=== PATIENT | female | born 1940 | race Caucasian/White ===

== ENCOUNTER 2021-10-01 05:43 | Inpatient (IN) | payer BC ==
[2021-09-28 16:27] LABS: BASOPHILS % (AUTO) 0.4 % (0-1); EOSINOPHILS # (AUTO) 0.2 X10'3 (0-0.9); EOSINOPHILS % (AUTO) 3.1 % (0-6); LYMPHOCYTES # (AUTO) 1.5 X10'3 (1.1-4.8); LYMPHOCYTES % (AUTO) 19.4 % (21-51); MEAN CORPUSCULAR HEMOGLOBIN 30.4 PG (27.0-31.0); MEAN CORPUSCULAR HGB CONC 33.1 g/dL (33.0-36.5); MEAN CORPUSCULAR VOLUME 91.9 FL (78-98); MEAN PLATELET VOLUME 8.2 FL (7.4-10.4); MONOCYTES # (AUTO) 0.8 X10'3 (0-0.9); MONOCYTES % (AUTO) 10.5 % (2-12); NEUTROPHILS % (AUTO) 66.6 % (42-75); PRE OP HEMOGLOBIN 12.6 g/dL (12.0-16.0); PRE OP PLATELET COUNT 445 X10'3 (140-440); RED BLOOD COUNT 4.14 X10'6 (4.20-5.60); RED CELL DISTRIBUTION WIDTH 13.4 % (11.5-14.5)
[2021-09-28 16:42] LABS: PRE OP PROTIME 10.7 SECONDS (9.0-12.0)
[2021-09-28 16:49] LABS: ALBUMIN 3.9 G/DL (3.4-5.0); ALBUMIN/GLOBULIN RATIO 1.4 (1.1-1.5); ALKALINE PHOSPHATASE 67 IU/L (46-116); BLOOD UREA NITROGEN 39 MG/DL (7-18); BUN/CREATININE RATIO 30.7 (6.6-38.0); CALCIUM 9.7 MG/DL (8.5-10.1); CHLORIDE 103 MMOL/L (99-107); CREATININE 1.27 MG/DL (0.40-0.90); PRE OP ALT 17 U/L (30-65); PRE OP ANION GAP 9 (8-16); PRE OP AST 15 U/L (10-37); PRE OP BILIRUB, TOTAL 0.3 MG/DL (0.0-1.0); PRE OP GLUCOSE 122 MG/DL (70-104); PRE OP POTASSIUM 5.3 MMOL/L (3.4-5.1); PRE OP SODIUM 139 MMOL/L (135-145); TOTAL CARBON DIOXIDE 26.8 MMOL/L (24-32); TOTAL PROTEIN 6.7 G/DL (6.4-8.2); eGFR 40 ML/MIN
[2021-10-01] VITALS (20 sets, daily range): BP systolic 110–155; BP diastolic 39–84
[~2021-10-01] VITALS: Ht 165.1 cm; Wt 71.0 kg
[2021-10-01] MEDS: phenylephrine 50 MG in NS 250ml IVPB IV SCH (05:30)
[2021-10-01] MEDS: nitroPRUSSIDE (NIPRIDE) (200MCG/ML) 100ML Drip IV SCH ×2 (05:30→23:46)
[~2021-10-01 05:43] MED LIST: ASPI-1053 PO; CARV6.252 PO; FURO-150 PO; LISI10TA27 PO; SPIR25TA5 PO; aspirin 325mg tablet PO ONE; famotidine 20mg tablet PO ONE; ondansetron/PF 4mg/2ml inj IV PRN; ringers solution, lacted 1,000 ML IV SCH
[2021-10-01 07:11] LABS: ALANINE AMINOTRANSFERASE 16 U/L (12-78); ALBUMIN 3.7 G/DL (3.4-5.0); ALBUMIN/GLOBULIN RATIO 1.4 (1.1-1.5); ALKALINE PHOSPHATASE 58 IU/L (46-116); ANION GAP 10 (8-16); ASPARTATE AMINO TRANSFERASE 17 U/L (10-37); BILIRUBIN,TOTAL 0.4 MG/DL (0.1-1.0); BLOOD UREA NITROGEN 31 MG/DL (7-18); BUN/CREATININE RATIO 29.8 (6.6-38.0); CALCIUM 9.3 MG/DL (8.5-10.1); CHLORIDE 103 MMOL/L (99-107); CREATININE 1.04 MG/DL (0.40-0.90); GLUCOSE 126 MG/DL (70-104); POTASSIUM 4.8 MMOL/L (3.5-5.1); SODIUM 137 MMOL/L (135-145); TOTAL CARBON DIOXIDE 23.9 MMOL/L (24-32); TOTAL PROTEIN 6.4 G/DL (6.4-8.2); eGFR 51 ML/MIN
[2021-10-01] MEDS ORDERED: protamine sulfate 10mg/ml inj. ONE (11:20)
[2021-10-01] MEDS ORDERED: LIDOcaine 1% (10mg/ml)w/preservative injection 20ml MDV ONE (11:43)
[2021-10-01] MEDS ORDERED: iohexol 350MG/ML 100ml bottle IV ONE (11:43)
[2021-10-01] MEDS ORDERED: iohexol 350 MG/ML 50ML vial IV ONE (11:43)
[2021-10-01] MEDS ORDERED: heparin 1,000 UNITS/NS 500ml 1,500 ML ONE (11:43)
[2021-10-01] MEDS ORDERED: midazolam 1 mg/ML 2ml injection ONE (12:13)
[2021-10-01] MEDS ORDERED: REMIFENTANIL (Ultiva) 1 MG VIAL IV ONE (12:14)
[2021-10-01] MEDS ORDERED: propofol inj 20 ML IV ONE (12:42)
[2021-10-01] MEDS ORDERED: LIDOcaine 2% (20mg/ml) 5ml vial ONE (12:42)
[2021-10-01] MEDS ORDERED: hydrALAZINE 20mg/ml inj. IV PRN (13:45)
[2021-10-01] MEDS ORDERED: ondansetron/PF 4mg/2ml inj IV PRN (13:45)
[2021-10-01] MEDS ORDERED: potassium CL 10mEq/100ml bag 100 ML IV PRN (13:45)
[2021-10-01] MEDS ORDERED: labetalol 20mg/4ml (5mg/ml) syringe IV PRN (13:45)
[2021-10-01] MEDS ORDERED: potassium Cl 40MEQ/1/2NS 520ml 520 ML IV PRN (13:45)
[2021-10-01] MEDS ORDERED: docusate sod 100mg capsule PO PRN (13:45)
[2021-10-01] MEDS: normal saline 1000ml 1,000 ML IV SCH ×2 (13:45→23:45)
[2021-10-01] MEDS ORDERED: diphenhydrAMINE 25mg capsule PO PRN (13:45)
[2021-10-01] MEDS ORDERED: potassium Cl 20 mEq SR tablet PO PRN (13:45)
[2021-10-01] MEDS ORDERED: proCHLORperazine 10 MG/2 ml inj IV PRN (13:45)
[2021-10-01] MEDS ORDERED: magnesium 4gm in 100ml NS 100 ML IV PRN (13:45)
[2021-10-01] MEDS ORDERED: pantoprazole 40mg Tablet.DR PO PRN (13:45)
[2021-10-01] MEDS ORDERED: ALPRAZolam 0.25mg tablet PO PRN (13:45)
[2021-10-01] MEDS ORDERED: magnesium 2GM in 50ml NS 50 ML IV PRN (13:45)
--- NOTE | 2021-10-01 13:56 | NUR ---
Received from OR via HOSPITAL BED, accompanied by Anesthesiologist and report given by Anesthesiolgist. PATIENT PRESENTS WITH ARTLINE IN RIGHT WRIST, 18G LAC, BILATERAL FEMORAL DRESSING CDI, SOFT NONTENDER. PEDAL PUSLES DOPPLERED. NEURO CHECK- PUSH PULLS, SMILE, SQUINT, RAISE EYEBROWS ALL NORMAL.VSS. Addendum: 10/01/21 at 1430 by Maria Warner RN Amended: Links added.
[2021-10-01] MEDS: acetaminophen 325mg tablet PO PRN ×2 (15:40→20:13)
--- NOTE | 2021-10-01 15:59 | NUR ---
CALLED REPORT TO CANDELARIO CELIS. ANSWERED ALL HER QUESTIONS. TOOK PATIENT TO THE FLOOR Addendum: 10/01/21 at 1623 by Maria Warner RN Amended: Links added.
[2021-10-01] MEDS: sod chloride 0.9% 10ml flush syringe IV SCH (16:00)
--- NOTE | 2021-10-01 16:16 | NUR ---
PATIENT MEETS DISCHARGE CRITERIA. DC'D ART LINE NO COMPLICATIONS. VSS. BILATERAL FEMORAL PERCLOSE INTACT, NO DRAINAGE. LR AT 100 RUNNING. REPORT GIVEN TO AARON PALOMINO RN. Addendum: 10/01/21 at 1633 by Maria Warner RN Amended: Links added.
--- NOTE | 2021-10-01 18:10 | NUR ---
Patient in room MED 316. I have received report from CANDELARIO CELIS and had the opportunity to ask questions and assume patient care.
--- NOTE | 2021-10-01 18:15 | NUR ---
Problems reprioritized. Patient report given, questions answered & plan of care reviewed with Allie RN.
--- NOTE | 2021-10-01 18:30 | NUR ---
EDUCATED PATIENT ON LASIX GTT; PATIENT NEEDS TO USE CALL LIGHT FOR AMBULATION AND OTHER ACTIVITIES DESPITE BEING INDEPENDENT DUE TO INCREASED FALL RISK. PATIENT AGREEABLE TO ACCEPTING HELP WITH AMBULATION NEEDS. SLIME CELIS
[2021-10-01] MEDS: carvedilol 6.25mg tablet PO SCH (20:11)
[2021-10-01] MEDS: VANCOMYCIN 1GM/200ML IVPB 200 ML IV SCH (20:11)
[2021-10-02 02:00] VITALS: BP 120/52
--- NOTE | 2021-10-02 02:30 | NUR ---
PATIENTS BLOOD PRESSURE 98 SYSTOLICALLY X 2; DISCUSSED PAUSING LASIX GTT WITH [employer] SUPERVISOR JEAN-ABDIFATAH TO CLOSELY MONITOR SBP, ORDERS STATE TO PAUSE IF SYSTOLIC BP LESS THAN 100. CONTINUING IV LASIX GTT PER MD ORDER TO CONTINUE TO DIURESE..
[2021-10-02] MEDS: phenylephrine 50 MG in NS 250ml IVPB IV SCH (04:20)
[2021-10-02 05:41] LABS: BASOPHILS % (AUTO) 0.5 % (0-1); EOSINOPHILS # (AUTO) 0.3 X10'3 (0-0.9); EOSINOPHILS % (AUTO) 3.6 % (0-6); HEMATOCRIT 35.4 % (35.0-45.0); HEMOGLOBIN 11.7 g/dl (12.0-16.0); LYMPHOCYTES # (AUTO) 1.7 X10'3 (1.1-4.8); LYMPHOCYTES % (AUTO) 19.9 % (21-51); MEAN CORPUSCULAR HEMOGLOBIN 30.2 PG (27.0-31.0); MEAN CORPUSCULAR HGB CONC 33.1 g/dL (33.0-36.5); MEAN CORPUSCULAR VOLUME 91.2 FL (78-98); MEAN PLATELET VOLUME 8.3 FL (7.4-10.4); MONOCYTES # (AUTO) 1.3 X10'3 (0-0.9); MONOCYTES % (AUTO) 15.7 % (2-12); NEUTROPHILS # (AUTO) 5.1 X10'3 (1.8-7.7); NEUTROPHILS % (AUTO) 60.3 % (42-75); PLATELET COUNT 310 X10'3 (140-440); RED BLOOD COUNT 3.88 X10'6 (4.20-5.60); RED CELL DISTRIBUTION WIDTH 13.6 % (11.5-14.5); WHITE BLOOD COUNT 8.5 X10'3 (4.5-11.0)
[2021-10-02 05:57] LABS: ALANINE AMINOTRANSFERASE 15 U/L (12-78); ALBUMIN 3.2 G/DL (3.4-5.0); ALKALINE PHOSPHATASE 55 IU/L (46-116); ANION GAP 9 (8-16); ASPARTATE AMINO TRANSFERASE 16 U/L (10-37); BILIRUBIN,TOTAL 0.4 MG/DL (0.1-1.0); BLOOD UREA NITROGEN 24 MG/DL (7-18); CHLORIDE 106 MMOL/L (99-107); CREATININE 0.89 MG/DL (0.40-0.90); GLUCOSE 89 MG/DL (70-104); MAGNESIUM 1.9 MG/DL (1.5-2.4); POTASSIUM 4.6 MMOL/L (3.5-5.1); SODIUM 139 MMOL/L (135-145); TOTAL CARBON DIOXIDE 24.2 MMOL/L (24-32); TOTAL PROTEIN 6.4 G/DL (6.4-8.2); eGFR 61 ML/MIN
[2021-10-02 06:00] VITALS: BP 128/53
[2021-10-02] MEDS: carvedilol 6.25mg tablet PO SCH (07:50)
[2021-10-02] MEDS: VANCOMYCIN 1GM/200ML IVPB 200 ML IV SCH (07:51)
[2021-10-02] MEDS ORDERED: furosemide 20MG tablet PO SCH (08:00)
[2021-10-02] MEDS ORDERED: aspirin 81mg tab.chew PO SCH (08:00)
[2021-10-02] MEDS ORDERED: lisinopril 10 MG tablet PO SCH (08:00)
[2021-10-02] MEDS: sod chloride 0.9% 10ml flush syringe IV SCH ×2 (08:01)
[2021-10-02] MEDS: normal saline 1000ml 1,000 ML IV SCH (08:09)
[2021-10-02 08:14] LABS: PLATELET ESTIMATE NORMAL
[2021-10-02 08:15] LABS: BURR CELLS FEW; ELLIPTOCYTES 1+; SCHISTOCYTES FEW
[2021-10-02 11:00] VITALS: BP 100/54
--- NOTE | 2021-10-02 15:23 | NUR ---
Pt stable for d/c per MD orders Pt stable for d/c per MD orders. All d/c ppwk was reviewed with pt and pt family. Both verbalized understanding. PIV was removed from L AC - pt tolerated well. No new RX. All personal belongings were sent with the pt. Pt was wheeled out by nursing staff to private vehicle with pt daughter waiting.
== END 2021-10-02 15:20 | disposition home or self-care (01) | DRG 266 ==
LOC: PAS IN 05:43 → MED 3N 16:20
PROVIDERS: ADMIT Internal Medicine Cardiovascular Disease; ATTEND Internal Medicine Cardiovascular Disease
PROC: B41D1ZZ Fluoroscopy of Aorta and Bilateral Lower Extremity Arteries using Low Osmolar Contrast (ICD-10-PCS; 2021-10-01)
PROC: 5A1223Z Performance of Cardiac Pacing, Continuous (ICD-10-PCS; 2021-10-01)
PROC: X2RF332 Replacement of Aortic Valve using Zooplastic Tissue, Rapid Deployment Technique, Percutaneous Approach, New Technology Group 2 (ICD-10-PCS; principal; 2021-10-01 12:03)
DX: I35.0 Nonrheumatic aortic (valve) stenosis (principal); I50.23 Acute on chronic systolic (congestive) heart failure; E87.5 Hyperkalemia; I44.7 Left bundle-branch block, unspecified; Z00.6 Encounter for examination for normal comparison and control in clinical research program
CPT/HCPCS: 33361; 36415; 71045; 76937; 80053; 83735; 83880; 85008; 85025; 85347; 85610; 85730; 86885; 86900; 86901; 86920; 87081; 87635; 93005; 93308; A4618; A6258; A6449; C1760; C1769; C1894; G0378; J1644; J2250; J2370; J2704; J2720; J3370; J3490; J7040; J7050; J7120; Q9967